=== PATIENT | female | born 1945 | race Caucasian/White ===

== ENCOUNTER 2016-12-23 09:27 | Emergency (ER) | payer OTHER ==
[2016-12-23 09:36] VITALS: TEMP 97.7
--- NOTE | 2016-12-23 09:54 | CPEKG ---
Heart Rate: 74 RR Interval: 811 P-R Interval: 156 QRSD Interval: 90 QT Interval: 384 QTC Interval: 426 P Walker: 75 QRS Walker: 72 T Wave Walker: 128 EKG Severity - NORMAL ECG - EKG Impression: SINUS RHYTHM Electronically Signed By: Stacy Menendez 23-Dec-2016 14:24:50
[2016-12-23] MEDS ORDERED: NS 500 ML IV ONE (10:01)
--- NOTE | 2016-12-23 10:01 | EDPHY ---
H & P Time Seen by Provider: 12/23/16 09:38 HPI/ROS: CHIEF COMPLAINT: Right side pain HISTORY OF PRESENT ILLNESS: Patient is a 71-year-old female with with a history of essential tremors and depression who presents to the emergency department with right-sided chest pain. Her pain extends from her right shoulder down to her right pelvis. It is worse with movement. It does not radiate. Has no shortness of breath or cough. No nausea or vomiting. No diarrhea. No notable rash. No fevers or chills. Patient states that she feels "lethargic." She recently started taking clonazepam. REVIEW OF SYSTEMS: My complete review of systems is negative except as mentioned in the HPI. Past Medical/Surgical History: Includes essential tremors, depression, anxiety Past surgical history: Noncontributory Social history: The patient denies drugs or alcohol Smoking Status: Never smoked Physical Exam: Vitals noted. Afebrile. GENERAL: Well-appearing, in no acute distress, alert. HEENT: Eyes normal to inspection, normal pharynx, no signs of dehydration. NECK: No thyromegaly, no lymphadenopathy, supple. RESPIRATORY: Clear to auscultation bilaterally, no rales, rhonchi or wheezing. CVS: Regular rate and rhythm, no rubs, murmurs, or gallops. Chest wall: No chest wall tenderness to palpation. ABDOMEN: Soft, nontender, nondistended, no organomegaly. Benign BACK: Normal to inspection, no CVA tenderness. SKIN: Normal color, no rash, warm, dry. No pallor. EXTREMITIES: No pedal edema, no calf tenderness, no Homans sign or cords, no joint swelling. NEURO/PSYCH: Alert and oriented x3, normal mood and affect, normal motor sensory exam. Constitutional: Initial Vital Signs Temperature (C) 36.5 C 12/23/16 09:32 Heart Rate 90 12/23/16 09:32 Respiratory Rate 16 12/23/16 09:32 Blood Pressure 122/72 H 12/23/16 09:32 O2 Sat (%) 94 12/23/16 09:32 O2 Delivery Mode Room Air Allergies/Adverse Reactions: quetiapine fumarate [From Seroquel] Allergy (Verified 06/22/15 11:42) Sulfa (Sulfonamide Antibiotics) [Sulfa(Sulfonamide Antibiotics)] Allergy ( Verified 06/22/15 11:42) Home Medications: Medication Instructions Recorded Bupropion HCl [Wellbutrin Sr] 200 mg PO 03/26/12 DULoxetine [Cymbalta] 20 mg PO 03/26/12 [place] Aspartate [Lithate] 5 mg PO 03/26/12 Pregabalin [Lyrica] 100 mg PO 03/26/12 busPIRone HCL [Buspar] 10 mg PO 03/26/12 levOFLOXACIN [Levaquin] 750 mg PO DAILY #10 tab 12/23/16 Medical Decision Making - Diagnostics EKG Interpretation: EKG shows normal sinus rhythm, normal rate, normal axis, normal intervals. There are no ST or T-wave abnormalities. EKG is normal as interpreted by me. ED Course/Re-evaluation: In the emergency department I discussed possible etiologies with the patient. I answered all her questions. Laboratory studies, EKG and chest x-ray were ordered. Laboratory studies[place] [address]. Chest x-ray: Right middle lobe pneumonia. Please refer the dictated report by the radiologist. I rechecked the patient on numerous occasions. She was stable during her stay. 1245: Patient is doing well. No new complaints. No respiratory distress. I discussed the result with the patient. I answered all her questions. Patient was given Levaquin 750 mg IV. I had a long discussion with the patient and her son. I offered admission for further treatment of her pneumonia. She would prefer to be discharged home. I discussed the risks and benefits of this. Patient and her son felt comfortable to plan. She will be staying with her son. They are given warnings and she will return if her symptoms worsen. She not require oxygen at this time. Differential Diagnosis: My differential includes but is not limited to pneumonia, pneumothorax, ACS, acute NV, cholecystitis, cholangitis, pancreatitis, small-bowel obstruction, perforation, UTI, pyelonephritis, medication reaction - Data Points Laboratory Results: Laboratory Results 12/23/16 09:47 12/23/16 09:47 12/23/16 12/23/16 12/23/16 09:47 09:47 09:40 WBC 19.52 10^3/uL H 10^3/uL (3.80-9.50) RBC 4.35 10^6/uL 10^6/uL (4.18-5.33) Hgb 14.3 g/dL g/dL (12.6-16.3) Hct 43.1 % % (38.0-47.0) MCV 99.1 fL fL (81.5-99.8) MCH 32.9 pg pg (27.9-34.1) MCHC 33.2 g/dL g/dL (32.4-36.7) RDW 12.5 % % (11.5-15.2) Plt Count 310 10^3/uL 10^3/uL (150-400) MPV 10.3 fL fL (8.7-11.7) Neut % (Auto) Not Reported Lymph % (Auto) Not Reported [place] % (Auto) Not Reported Eos % (Auto) Not Reported Baso % (Auto) Not Reported Nucleat RBC Rel Count 0.0 % % (0.0-0.2) Absolute Neuts (auto) Not Reported Absolute Lymphs (auto) Not Reported Absolute Monos (auto) Not Reported Absolute Eos (auto) Not Reported Absolute Basos (auto) Not Reported Absolute Nucleated RBC 0.00 10^3/uL 10^3/uL (0-0.01) Immature Gran % Not Reported Seg Neutrophils % 94 % % Band Neutrophils % 2 % % Lymphocytes % 2 % % Monocytes % 2 % % Immature Gran # Not Reported Absolute Seg Neuts 18.35 10^/uL H 10^/uL (1.70-6.50) Absolute Band Neuts 0.39 10^3/uL 10^3/uL (0.00-0.70) Absolute Lymphocytes 0.39 10^3/uL L 10^3/uL (1.00-3.00) Absolute Monocytes 0.39 10^3/uL 10^3/uL (0.30-0.80) RBC/WBC/PLT Morphology NORMAL (NORMAL) Platelet Estimate ADEQUATE (ADEQ) Sodium 135 mEq/L mEq/L (134-144) Potassium 4.4 mEq/L mEq/L (3.5-5.2) Chloride 98 mEq/L mEq/L (97-110) Carbon Dioxide 25 mEq/l mEq/l (22-31) Anion Gap 12 mEq/L mEq/L (8-16) BUN 15 mg/dL mg/dL (7-23) Creatinine 0.8 mg/dL mg/dL (0.6-1.0) Estimated GFR > 60 Glucose 116 mg/dL H mg/dL (70-100) Calcium 10.1 mg/dL mg/dL (8.5-10.4) Total Bilirubin 1.1 mg/dL mg/dL (0.1-1.4) Conjugated Bilirubin 0.3 mg/dL mg/dL (0.0-0.5) Unconjugated Bilirubin 0.8 mg/dL mg/dL (0.0-1.1) AST 48 IU/L H IU/L (14-46) ALT 47 IU/L IU/L (9-52) Alkaline Phosphatase 75 IU/L IU/L (38-126) Troponin I 0.013 ng/mL ng/mL (0-0.034) Total Protein 7.7 g/dL g/dL (6.3-8.2) Albumin 4.6 g/dL g/dL (3.5-5.0) Lipase 31.0 IU/L IU/L (23-300) Urine Color YELLOW Urine Appearance CLEAR Urine pH 8.0 H (5.0-7.5) Ur Specific [place] 1.018 (1.002-1.030) Urine Protein NEGATIVE (NEGATIVE) Urine Ketones NEGATIVE (NEGATIVE) Urine Blood NEGATIVE (NEGATIVE) Urine Nitrate NEGATIVE (NEGATIVE) Urine Bilirubin NEGATIVE (NEGATIVE) Urine Urobilinogen NEGATIVE EU EU (0.2-1.0) Ur Leukocyte Esterase NEGATIVE (NEGATIVE) Ur Culture Indicated? NOT INDICATED (NI) Urine Glucose NEGATIVE (NEGATIVE) Medications Given: Discontinued Medications Sodium Chloride (Ns) 500 mls @ 0 mls/hr IV ONCE ONE PRN Reason: As Directed Stop: 12/23/16 10:02 Last Admin: 12/23/16 10:08 Dose: 500 mls Levofloxacin/Dextrose (Levaquin 750 Mg (Premix)) 150 mls @ 100 mls/hr IV EDNOW ONE PRN Reason: Protocol Stop: 12/23/16 12:32 Last Admin: 12/23/16 11:26 Dose: 150 mls Departure - Departure Disposition: Home, Routine, Self-Care Clinical Impression: Right middle lobe pneumonia Qualifiers: Pneumonia type: due to unspecified organism Qualified Code(s): J18.1 - Lobar pneumonia, unspecified organism Condition: Good Instructions: Pneumonia (ED) Additional Instructions: You have a right middle lobe pneumonia. If you developed increasing chest pain , shortness of breath or persistent fever you need to return to the emergency department for further evaluation. Take your entire course of antibiotics as directed. Return with close follow-up with your primary care physician. Referrals: Disha Schmitt [Primary Care Provider] - 1-2 days without fail Prescriptions: levOFLOXACIN [Levaquin] 750 mg PO DAILY #10 tab
[2016-12-23 10:13] LABS: ADD DIFF? YES; ADD MORPH? NO; ADD SCAN? NO; ATYPICAL LYMPHOCYTE FLAG 0 (0-99); FRAGMENT RBC FLAG 0 (0-99); HEMATOCRIT 43.1 % (38.0-47.0); HEMOGLOBIN 14.3 g/dL (12.6-16.3); LEFT SHIFT FLG 30 (0-99); LIPEMIA HEMOLYSIS FLAG 80 (0-99); MEAN CELL HEMOGLOBIN 32.9 pg (27.9-34.1); MEAN CELL HEMOGLOBIN CONCENTR. 33.2 g/dL (32.4-36.7); MEAN CELL VOLUME 99.1 fL (81.5-99.8); MEAN PLATELET VOLUME 10.3 fL (8.7-11.7); PLATELET CLUMPS FLAG 10 (0-99); PLATELET COUNT 310 10^3/uL (150-400); RED BLOOD CELL COUNT 4.35 10^6/uL (4.18-5.33); RED CELL DISTRIBUTION WIDTH 12.5 % (11.5-15.2)
[2016-12-23 10:13] LABS: COLOR YELLOW; LEUKOCYTE ESTERASE,URINE NEGATIVE (NEGATIVE); NITRITE,URINE NEGATIVE (NEGATIVE)
[2016-12-23 10:37] LABS: ALANINE AMINOTRANSFERASE 47 IU/L (9-52); ALBUMIN 4.6 g/dL (3.5-5.0); ALKALINE PHOSPHATASE 75 IU/L (38-126); ANION GAP 12 mEq/L (8-16); ASPARTATE AMINOTRANSFERASE 48 IU/L (14-46); BILIRUBIN,TOTAL 1.1 mg/dL (0.1-1.4); BILIRUBIN-CONJUGATED 0.3 mg/dL (0.0-0.5); BILIRUBIN-UNCONJUGATED 0.8 mg/dL (0.0-1.1); CALCIUM 10.1 mg/dL (8.5-10.4); CARBON DIOXIDE 25 mEq/l (22-31); CHLORIDE 98 mEq/L (97-110); CREATININE 0.8 mg/dL (0.6-1.0); GLOMERULAR FILTRATION RATE > 60; GLUCOSE 116 mg/dL (70-100); POTASSIUM 4.4 mEq/L (3.5-5.2); SODIUM 135 mEq/L (134-144); TOTAL PROTEIN 7.7 g/dL (6.3-8.2)
[2016-12-23 10:45] LABS: TROPONIN I 0.013 ng/mL (0-0.034)
[2016-12-23 10:58] LABS: PLATELET ESTIMATE ADEQUATE (ADEQ)
[2016-12-23 13:14] VITALS: BP 111/64; PULSE 77; RESP 14; O2SAT 95
[2016-12-23] MEDS ORDERED: IBUPROFEN 200 MG TAB PO ONE (13:14)
== END 2016-12-23 13:20 | disposition home or self-care (01) ==
DX: J18.1 Lobar pneumonia, unspecified organism (principal)
CPT/HCPCS: 71020; 93005; 96361; 96365; 96366; 99285; J1956

== ENCOUNTER 2017-12-05 23:56 | Observation (INO) | payer OTHER ==
[2017-12-05] MEDS ORDERED: NS 1,000 ML IV ONE (23:59)
--- NOTE | 2017-12-05 23:59 | EDPHY ---
H & P HPI/ROS: HPI CHIEF COMPLAINT: Cough, shortness of breath HISTORY OF PRESENT ILLNESS: This patient very pleasant 72-year-old female she presents emergency room with a cough and wheezing. She states she has been sick since over the weekend. Denies any fever. She reports to me that since early this week she has developed a cough. Sometimes productive. And now over time she coughs a greatly hurts her chest. She denies hemoptysis. She does endorse some shortness of breath and some wheezing. She has not had any fever. She does complain of generalized weakness. Decided come to the emergency room due to ongoing cough and wheezing. Past Medical History: Central tremors, anxiety, depression Past Surgical History: Denies recent surgery Social History: Denies drugs alcohol tobacco. Family History: Noncontributory ROS REVIEW OF SYSTEMS: A comprehensive 10 point review of systems is otherwise negative aside from elements mentioned in the history of present illness. Exam Constitutional triage nursing summary reviewed, vital signs reviewed, awake/ alert. Eyes normal conjunctivae and sclera, EOMI, PERRLA. HENT normal inspection, atraumatic, moist mucus membranes, no epistaxis, neck supple/ no meningismus, no raccoon eyes. Respiratory decreased breath sounds bilaterally, faint wheezing bilaterally, bronchitic sounding cough Cardiovascular rate normal, regular rhythm, no murmur, no edema, distal pulses normal. Gastrointestinal soft, non-tender, no rebound, no guarding, normal bowel sounds, no distension, no pulsatile mass. Genitourinary no CVA tenderness. Musculoskeletal no midline vertebral tenderness, full range of motion, no calf swelling, no tenderness of extremities, no meningismus, good pulses, neurovascularly intact. Skin pink, warm, & dry, no rash, skin atraumatic. Neurologic awake, alert and oriented x 3, AAOx3, moves all 4 extremities equally, motor intact, sensory intact, CN II-XII intact, normal cerebellar, normal vision, normal speech. Psychiatric normal mood/affect. Heme/Lymph/Immune no lymphadenopathy. Differential Diagnosis: Includes but is not limited to in a particular order, acute bronchitis, reactive air disease, pneumonia, viral syndrome, CHF, influenza, acute coronary syndrome Medical Decision Making: Plan for this patient full athletic monitor, IV establishment blood draw, DuoNeb breathing treatment, chest x-ray, and re- evaluate. Obtain EKG. Troponin and blood work. Re-evaluation: EKG interpretation by me on record in [facility] system. Impression time of EKG 0008 sinus rhythm rate of 58. No ST elevation. No ST depression. No significant T-wave abnormalities. Similar to EKG dated 12/23/2016. ED x-ray chest one view: I do not appreciate focal pneumonia. This patient is RSV bronchiolitis. Given the patient's ongoing nausea, shortness of breath, cough despite breathing treatments here in the emergency room should be admitted to the hospital for RSV bronchiolitis. Source: Patient - Medical/Surgical History Hx Asthma: No Hx Chronic Respiratory Disease: No Hx Diabetes: No Hx Cardiac Disease: No Hx Renal Disease: No Hx Cirrhosis: No Hx Alcoholism: No Hx HIV/AIDS: No Hx Splenectomy or Spleen Trauma: No Other PMH: essential tremors, depression, anxiety. mood disorder - Social History Smoking Status: Never smoked Constitutional: Initial Vital Signs Temperature (C) 36.7 C 12/06/17 00:03 Heart Rate 60 12/06/17 00:03 Respiratory Rate 20 12/06/17 00:03 Blood Pressure 123/84 H 12/06/17 00:03 O2 Sat (%) 96 12/06/17 00:03 O2 Delivery Mode Room Air Allergies/Adverse Reactions: quetiapine fumarate [From Seroquel] Allergy (Verified 06/22/15 11:42) Sulfa (Sulfonamide Antibiotics) [Sulfa(Sulfonamide Antibiotics)] Allergy ( Verified 06/22/15 11:42) Home Medications: Medication Instructions Recorded Bupropion HCl [Wellbutrin Sr] 200 mg PO 03/26/12 DULoxetine [Cymbalta] 20 mg PO 03/26/12 [place] Aspartate [Lithate] 5 mg PO 03/26/12 Pregabalin [Lyrica] 100 mg PO 03/26/12 busPIRone HCL [Buspar] 10 mg PO 03/26/12 levOFLOXACIN [Levaquin] 750 mg PO DAILY #10 tab 12/23/16 Medical Decision Making - Data Points Laboratory Results: Laboratory Results 12/05/17 12:15 12/05/17 12:15 12/06/17 12/06/17 12/05/17 00:30 00:30 12:15 WBC RBC Hgb Hct MCV MCH MCHC RDW Plt Count MPV Neut % (Auto) Lymph % (Auto) [place] % (Auto) Eos % (Auto) Baso % (Auto) Nucleat RBC Rel Count Absolute Neuts (auto) Absolute Lymphs (auto) Absolute Monos (auto) Absolute Eos (auto) Absolute Basos (auto) Absolute Nucleated RBC Immature Gran % Immature Gran # PT INR APTT Sodium 142 mEq/L mEq/L (135-145) Potassium 4.2 mEq/L mEq/L (3.5-5.2) Chloride 105 mEq/L mEq/L (97-110) Carbon Dioxide 25 mEq/l mEq/l (22-31) Anion Gap 12 mEq/L mEq/L (8-16) BUN 10 mg/dL mg/dL (7-23) Creatinine 0.8 mg/dL mg/dL (0.6-1.0) Estimated GFR > 60 Glucose 79 mg/dL mg/dL (70-100) Calcium 9.2 mg/dL mg/dL (8.5-10.4) Magnesium 2.2 mg/dL mg/dL (1.6-2.3) Total Bilirubin 0.2 mg/dL mg/dL (0.1-1.4) Conjugated Bilirubin 0.2 mg/dL mg/dL (0.0-0.5) Unconjugated Bilirubin 0.0 mg/dL mg/dL (0.0-1.1) AST 20 IU/L IU/L (14-46) ALT 32 IU/L IU/L (9-52) Alkaline Phosphatase 75 IU/L IU/L (38-126) Creatine Kinase 53 IU/L IU/L (0-156) CK-MB (CK-2) Fraction 0.97 ng/mL ng/mL (0.00-3.19) Troponin I < 0.012 ng/mL ng/mL (0.000-0.034) NT-Pro-B Natriuret Pep 75 pg/mL pg/mL (0-125) Total Protein 6.1 g/dL L g/dL (6.3-8.2) Albumin 3.6 g/dL g/dL (3.5-5.0) Urine Color PALE YELLOW Urine Appearance CLEAR Urine pH 5.0 (5.0-7.5) Ur Specific [place] 1.004 (1.002-1.030) Urine Protein NEGATIVE (NEGATIVE) Urine Ketones NEGATIVE (NEGATIVE) Urine Blood NEGATIVE (NEGATIVE) Urine Nitrate NEGATIVE (NEGATIVE) Urine Bilirubin NEGATIVE (NEGATIVE) Urine Urobilinogen NEGATIVE EU EU (0.2-1.0) Ur Leukocyte Esterase NEGATIVE (NEGATIVE) Urine Glucose NEGATIVE (NEGATIVE) Nasal Influenza A PCR Pending Nasal Influenza B PCR Pending RSV (PCR) Pending 12/05/17 12/05/17 12:15 12:15 WBC 5.16 10^3/uL 10^3/uL (3.80-9.50) RBC 3.86 10^6/uL L 10^6/uL (4.18-5.33) Hgb 12.6 g/dL g/dL (12.6-16.3) Hct 38.8 % % (38.0-47.0) MCV 100.5 fL H fL (81.5-99.8) MCH 32.6 pg pg (27.9-34.1) MCHC 32.5 g/dL g/dL (32.4-36.7) RDW 12.6 % % (11.5-15.2) Plt Count 260 10^3/uL 10^3/uL (150-400) MPV 9.8 fL fL (8.7-11.7) Neut % (Auto) 43.8 % % (39.3-74.2) Lymph % (Auto) 29.8 % % (15.0-45.0) [place] % (Auto) 14.3 % H % (4.5-13.0) Eos % (Auto) 10.9 % H % (0.6-7.6) Baso % (Auto) 1.0 % % (0.3-1.7) Nucleat RBC Rel Count 0.0 % % (0.0-0.2) Absolute Neuts (auto) 2.26 10^3/uL 10^3/uL (1.70-6.50) Absolute Lymphs (auto) 1.54 10^3/uL 10^3/uL (1.00-3.00) Absolute Monos (auto) 0.74 10^3/uL 10^3/uL (0.30-0.80) Absolute Eos (auto) 0.56 10^3/uL H 10^3/uL (0.03-0.40) Absolute Basos (auto) 0.05 10^3/uL 10^3/uL (0.02-0.10) Absolute Nucleated RBC 0.00 10^3/uL 10^3/uL (0-0.01) Immature Gran % 0.2 % % (0.0-1.1) Immature Gran # 0.01 10^3/uL 10^3/uL (0.00-0.10) PT 12.8 SEC SEC (12.0-15.0) INR 0.94 (0.83-1.16) APTT 26.5 SEC SEC (23.0-38.0) Sodium Potassium Chloride Carbon Dioxide Anion Gap BUN Creatinine Estimated GFR Glucose Calcium Magnesium Total Bilirubin Conjugated Bilirubin Unconjugated Bilirubin AST ALT Alkaline Phosphatase Creatine Kinase CK-MB (CK-2) Fraction Troponin I NT-Pro-B Natriuret Pep Total Protein Albumin Urine Color Urine Appearance Urine pH Ur Specific [place] Urine Protein Urine Ketones Urine Blood Urine Nitrate Urine Bilirubin Urine Urobilinogen Ur Leukocyte Esterase Urine Glucose Nasal Influenza A PCR Nasal Influenza B PCR RSV (PCR) Medications Given: Discontinued Medications Albuterol/Ipratropium (Duoneb) 3 ml IH EDNOW ONE Stop: 12/06/17 00:08 Last Admin: 12/06/17 00:21 Dose: 3 ml Sodium Chloride (Ns) 1,000 mls @ 0 mls/hr IV EDNOW ONE; Wide Open PRN Reason: Protocol Stop: 12/06/17 00:00 Last Admin: 12/06/17 00:21 Dose: 1,000 mls Ondansetron HCl (Zofran) 4 mg IVP EDNOW ONE Stop: 12/06/17 00:03 Last Admin: 12/06/17 00:10 Dose: 4 mg Departure - Departure Disposition: [facility] Inpatient Acute Clinical Impression: Bronchitis Condition: Fair Referrals: NONE *PRIMARY CARE P,. [Unknown] - As per Instructions
[2017-12-06] MEDS ORDERED: ONDANSETRON 4 MG/2 ML VIAL IVP ONE (00:02)
[2017-12-06] MEDS ORDERED: IPRATROPIUM/ALBUTEROL 3 ML DEYVIAL IH ONE (00:07)
--- NOTE | 2017-12-06 00:11 | CPEKG ---
Heart Rate: 58 RR Interval: 1034 P-R Interval: 164 QRSD Interval: 86 QT Interval: 408 QTC Interval: 401 P [place]: 72 QRS [place]: 58 T Wave [place]: 67 EKG Severity - BORDERLINE ECG - EKG Impression: SINUS RHYTHM EKG Impression: BORDERLINE T ABNORMALITIES, ANT-LAT LEADS Electronically Signed By: Zan Duong 06-Dec-2017 06:50:26
[2017-12-06 00:28] LABS: PLATELET COUNT 260 10^3/uL (150-400)
[2017-12-06 00:36] LABS: INR 0.94 (0.83-1.16); PROTIME(PATIENT) 12.8 SEC (12.0-15.0)
[2017-12-06 00:38] LABS: CREATINE KINASE 53 IU/L (0-156)
[2017-12-06] MEDS ORDERED: DEXAMETHASONE 4 MG/ML VIAL ONE (01:21)
[2017-12-06] MEDS ORDERED: HYDROCODONE/APAP 5/325 TAB PO PRN (04:01)
[2017-12-06] MEDS ORDERED: ONDANSETRON 4 MG/2 ML VIAL IVP PRN (04:01)
[2017-12-06] MEDS ORDERED: ALBUTEROL 3 ML DEYVIAL IH PRN (04:01)
[2017-12-06] MEDS ORDERED: ACETAMINOPHEN 325 MG TAB PO PRN (04:01)
[2017-12-06 07:56] VITALS: O2SAT 96
--- NOTE | 2017-12-06 07:57 | GHP ---
[f rep st] HISTORY AND PHYSICAL DATE OF ADMISSION: 12/06/2017 SOURCE: Patient provides history, appears reliable. EMR reviewed and case discussed with ED provide itz. CHIEF COMPLAINT: Shortness of breath and cough. HISTORY OF PRESENT ILLNESS: This is a very pleasant 72-year-old female with past medical history sig nificant for anxiety, depression, and history of essential tremors, who presents to the emergency dep artment early this morning with complaints of worsening shortness of breath and cough. Patient repor ts she has been ill since 1 week ago. The patient denies any known sick contacts. She had increasin g shortness of breath with exertion over the past week, but in the last 5 or so days, her dyspnea has significantly worsened. She also reports some significant nausea without any vomiting. Some diarrh ea. No melena or hematochezia. Patient does report that she has been able to tolerate p.o. oral hyd ration, but appetite is slightly declined. The patient does endorse some chills. No fevers, no swea ts. REVIEW OF SYSTEMS: Negative, except as noted above. ALLERGIES: Seroquel and sulfa. HOME MEDICATIONS: BuSpar 10, Lyrica, lithium, Dulcolax, bupropion. PAST MEDICAL HISTORY: Bipolar disorder with depression, anxiety, tremors. PAST SURGICAL HISTORY: Right total hip arthroplasty, left total knee arthroplasty, bunionectomies. FAMILY HISTORY: Patient denies any lung disease, including asthma or COPD. SOCIAL HISTORY: Patient is . She does not drink, smoke, or use any illicit drugs. CODE STATUS: Full. PHYSICAL EXAMINATION: VITAL SIGNS: Upon arrival to the ED, blood pressure 123/84, heart rate 60, re spiratory rate 20, O2 sat is 96% on room air. Vitals currently available: Blood pressure 123/62, he art rate 55, respiratory rate 17, O2 sat 94% on a half liter by nasal cannula. The patient was noted to drop down her O2 sat while sleeping, but is not documented. Temperature 36.6. GENERAL: No acut e distress, a very pleasant adult female, appears quite fatigued and ill, but nontoxic. HEAD: Normo cephalic, atraumatic. EYES: Extraocular muscles are grossly intact. Pupils equal, round, slightly decreased reactivity to light bilaterally, but symmetric. No scleral icterus or conjunctival injecti on. ENT: Mucous membranes appear slightly dry. No oropharyngeal, erythema or exudates. Dentition intact. NECK: Supple. Trachea midline. CV: Regular rate and rhythm. No murmurs, rubs, or gallop s appreciated. RESPIRATORY: Lungs are clear to auscultation bilaterally. No wheezes, rales, or rho nchi. Patient does have intermittent cough during the interview. ABDOMEN: Positive bowel sounds. Soft, nontender to palpation. No rebound, guarding, or masses appreciated. EXTREMITIES: No cyanosi s, clubbing, or edema. 2+ pedal pulses bilaterally and symmetric. MUSCULOSKELETAL: Patient moves a ll extremities. Strength grossly normal. Patient is able to sit up independently. NEURO: Grossly nonfocal. Moves all extremities. Sensation intact. PSYCH: The patient's affect is appropriate at this time. Thought process, content, and questions also appropriate. This patient has endorsed some depression, none currently. LABORATORY STUDIES: WBC 5.16, H and H 12.6 and 38.8, MCV of 100.5, platelet count 260. No bands. P T is 12.8, INR 0.94, PTT 26.5. Sodium 142, potassium 4.2, chloride 105, CO2 25, anion gap is 12, BUN 10, creatinine 0.8, GFR greater than 60, glucose 79, calcium is 9.2, magnesium 2.2, total bili 0.2, ALT 32, AST is 20, alk phos 75. CK 53, CK-MB is 0.97. Troponin is negative, less than 0.012. BTNP 75. Total protein 6.1, albumin 3.6. UA is negative. Flu A is negative. RSV is positive. EKG, reviewed myself, sinus rhythm in the 50s, T-wave inversion V2, flattening in V3. Chest x-ray: Chest x-ray image reviewed myself. The patient has a prominent pulmonary vasculature, but also peribronchiolar cuffing and right middle lobe with some persistent interstitial prominence. I do not appreciate any consolidations, but we will await final radiology read. In December of 2016, lexie mark did have right middle lobe pneumonia. Images were compared, and some of these similar marking s are still persistent. ASSESSMENT AND PLAN: A pleasant 72-year-old female with history of anxiety, depression, and tremors, who presents to the emergency department with complaints of 1 week aggressively worsening dyspnea an d cough. 1. Upper respiratory infection with RSV positive testing. Patient will be given supportive care. S he has no active wheezing on exam at this time. Nebulizer p.r.n. if this should develop. Additional ly, patient's chest x-ray does show some right middle lobe markings, persistent from previous imaging . Awaiting final radiology review. The patient is afebrile and does not meet systemic inflammatory response syndrome or sepsis criteria at this time. 2. Dyspnea. Supplemental oxygen. Room air challenge at discharge. The patient reports her symptom s are slowly improving. Cough has decreased, but still present. Shortness of breath is improved wit h oxygen. 3. Nausea, without vomiting and diarrhea. Supportive care. Zofran will be available p.r.n. 4. Anxiety depression/bipolar disorder. Plan to resume patient's home medications this morning, onc e med rec completed. Fluid electrolyte nutrition. The patient received IV fluids in the emergency d epartment of a liter. She is tolerating p.o. and we will encourage her to continue to orally hydrate and monitor closely. 5. Electrolytes will be monitored and replaced if needed. Diet as tolerated. 6. Prophylaxis. SCDs, anticoagulation. Patient should stay additional day. 7. Code status is full. DISPOSITION: Patient will be admitted to observation on medical floor. She is feeling better and an ticipate discharge in the next 24 to 48 hours. /[id number]/MODL
[2017-12-06] MEDS ORDERED: ENOXAPARIN 40 MG/0.4 ML SYR SC SCH (09:00)
[2017-12-06] MEDS ORDERED: buPROPion SR 150 MG TAB PO SCH (10:45)
[2017-12-06] MEDS ORDERED: DULoxetine 60 MG CAP PO SCH (10:45)
[2017-12-06] MEDS ORDERED: BENZONATATE 100 MG CAP PO PRN (10:48)
[2017-12-06] MEDS ORDERED: guaiFENesin/CODEINE PHOS 10 ML UDCUP PO PRN (10:48)
[2017-12-06 10:57] VITALS: BP 121/62; PULSE 66; RESP 18; TEMP 97.9
--- NOTE | 2017-12-06 11:14 | ASMTCASEMG ---
Living Arrangements What is your living Answers: Alone arrangement? Who do you live with? Type Of Residence What kind of residence do Answers: Assisted you live in? Type of Residence Facility Name Notes: [facility] Discharge Plan Comments Coordination Status Comments Notes: Pt is a 72 y/o female admitted for RSV and bronchitis. Pt will most likely d/c without any needs. No therapies ordered at this time. CM available for changes. Plan: Independent Date Signed: 12/06/2017 11:13 AM Electronically Signed By:YONY Alvarez
--- NOTE | 2017-12-06 13:33 | GDS ---
[f rep st] DISCHARGE SUMMARY DIAGNOSES: 1. RSV pneumonitis, improved symptoms. 2. Bipolar disorder with depression. 3. Anxiety. 4. Tremors. 5. Nausea, likely related to her viral illness. PROCEDURES: Chest x-ray showed no infiltrate. HOSPITAL COURSE: Ms. Lorenzo is a 72-year-old admitted with increasing shortness of breath and cough. She was found to have RSV pneumonitis on admission. Chest x-ray was done, which showed no pneumoni a. She was treated symptomatically in the hospital and felt better on the day of discharge. She is ready to go home. She still feels weak, but feels she can manage at home. I did give her a cough tony ppressant and some Zofran as needed for nausea. CONDITION ON DISCHARGE: Good. Vital signs are stable. She has been afebrile. Heart rate 66, blood pressure 121/62. DISCHARGE MEDICATIONS: Please see discharge medication form. FOLLOWUP: She should follow up with her PCP within a week. Return with any worsening shortdoreen of norma hinton. /[id number]/MODL
[2017-12-06] MEDS ORDERED: FLUTICASONE NASAL 120 SPRAYS/16 GM MDI EACHNARE SCH (21:00)
[2017-12-06] MEDS ORDERED: LITHIUM CARBONATE 300 MG CAP PO SCH (21:00)
[2017-12-06] MEDS ORDERED: AZELASTINE NASAL MDI EACHNARE SCH (21:00)
[2017-12-06] MEDS ORDERED: PREGABALIN 50 MG CAP PO SCH (21:00)
[2017-12-07] MEDS ORDERED: ASPIRIN 81 MG CHEWABLE TAB PO SCH (09:00)
[2017-12-07] MEDS ORDERED: CALCIUM CARBONATE 500 MG TAB PO SCH (09:00)
[2017-12-07] MEDS ORDERED: MULTIVITAMINS 1 EACH TAB PO SCH (09:00)
[2017-12-07] MEDS ORDERED: ASCORBIC ACID 500 MG TAB PO SCH (09:00)
== END 2017-12-06 16:55 | disposition home or self-care (01) ==
LOC: F3E 12-06 04:20
PROVIDERS: ADMIT Family Medicine; ATTEND Family Medicine
DX: J12.1 Respiratory syncytial virus pneumonia (principal); F31.9 Bipolar disorder, unspecified; F41.9 Anxiety disorder, unspecified; R25.1 Tremor, unspecified; R11.0 Nausea
CPT/HCPCS: 71045; 93005; G0378; J1100; J1650; J2405; 96374

== ENCOUNTER → 2018-09-08 | Outpatient (CLI) | payer OTHER | LOC: FIMAGING 09:26 | PROVIDERS: ATTEND Physician Assistant | DX: M25.551 Pain in right hip (principal); Z96.641 Presence of right artificial hip joint ==

== ENCOUNTER → 2019-01-12 | Outpatient (CLI) | payer OTHER | LOC: FIMAGING 09:54 | PROVIDERS: ATTEND Physician Assistant | DX: R05 Cough (principal); R06.02 Shortness of breath; R07.9 Chest pain, unspecified; K44.9 Diaphragmatic hernia without obstruction or gangrene ==

== ENCOUNTER → 2019-03-13 | Outpatient (CLI) | payer OTHER | LOC: FIMAGING 10:49 | PROVIDERS: ATTEND Physician Assistant | DX: Z12.31 Encounter for screening mammogram for malignant neoplasm of breast (principal); Z13.820 Encounter for screening for osteoporosis; M85.89 Other specified disorders of bone density and structure, multiple sites ==